=== PATIENT | male | born 1945 | race Caucasian/White ===

== ENCOUNTER 2024-05-21 09:14 | Emergency (ER) | payer MEDICARE ==
[~2024-05-21] VITALS: Ht 165.1 cm; Wt 93.0 kg
--- NOTE | 2024-05-21 10:33 | ERN ---
ED Note History of Present Illness Stated Complaint: LT HAND NUMBNESS Chief Complaint: Hand Problem/Injury Time Seen by MD: 09:34 Dictation: This is a case of 79-year-old cuco fenton with past medical history of obesity, high cholesterol who presented to the ER with the complaints of left hand numbness. He States that he recently had a 5th metacarpal fracture in February. A cast was applied at the time of injury and was removed 3 weeks ago. He notes that he has started experiencing numbness and tingling sensations in the 1st 4 fingers and pain in the center of the left arm. He does not have any primary care physician or orthopedician here. He denies fever, chills, shortness of breath, chest pain, palpitations, nausea, vomiting, neck pain, abdominal pain, paresthesias/tingling/numbing sensations in the left arm. Past Medical History Past Medical History: High Cholesterol Surgical History: Other Review of System Dictation ROS Constitutional: No appetite loss, No fevers, chills , No night sweats, No weakness, fatigue Eye: No vision change, No redness, pain or discharge ENT: No hearing loss, ear pain or discharge, No nose bleeds, No sore throat, Neck: No swelling. pain or stiffness Respiratory: No cough, shortness of breath, wheezing Cardiovascular: No chest pain,, palpitations, dyspnea, No edema Gastrointestinal: No abdominal pain, No nausea, vomiting, No diarrhea, constipation Genitourinary: No painful urination, No blood in urine, No urinary incontinence, No frequency or urgency Musculoskeletal: No joint pain, muscle pain, swelling or stiffness Neurological: Numbness and tingling sensations and stiffness noted in in the 1st 4 fingers of left hand, pain in middle of the left palm, No weakness, tremors or seizures Psychiatric: : No depression, No anxiety, No sleep disturbance, No Memory ti nges Lymphatic: No easy bruising, No bleeding tendencies , No swollen lymph nodes A 13-point Review of Systems was assessed, all of which are negative except for HPI or as indicated above. Initial Vital Sign VS Vital Signs Date Time Temp Pulse Resp B/P (MAP) Pulse Ox O2 Delivery O2 Flow Rate FiO2 05/21/24 09:15 98.1 88 20 /147 99 Room Air 05/21/24 09:15 0 21 Physical Exam Dictation General: Alert & Oriented, No acute distress. EENT: No conjunctival redness or discharge noted Tympanic membranes are clear, Normal hearing, Oral mucosa is moist, No pharyngeal erythema, No nasal discharge, No oral lesions. Neck: Non-tender, No jugular vein distention, No lymphadenopathy, No thyromegaly, Supple. Respiratory: Lungs are clear to auscultation, Respirations are non-labored, Breath sounds are equal, No chest wall tenderness, _. Cardiovascular: Normal rate, Normal rhythm, No murmur, Good pulses equal in all extremities, Normal peripheral perfusion, No edema. Gastrointestinal: Soft, Non-tender, Non-distended, Normal bowel sounds, No organomegaly, _. Musculoskeletal: Restricted motion in 1 to 4th finger of the left palm, No tenderness, No swelling, No deformity, Normal gait. Integumentary: Warm, Dry, [place], Intact, No pallor, No rash. Neurologic: Alert, Oriented x4, Normal sensory, No focal defects Psychiatric: Cooperative, Appropriate mood & affect, Normal judgement, Non- suicidal. Results (Laboratory/Radiology) X-RAY Comment: PROCEDURE: HAND 3V LT - HAND 3+VWS LT HAND 3+VWS LT REASON: LEFT HAND PAIN, RECENT FRACTURE S/P CAST TECHNIQUE: 3 views were obtained. FINDINGS: There is a spiral fracture midshaft of the fifth metatarsal. Margins are sclerotic consistent with partial healing or with fracture nonunion. There are no additional fractures. Joint spaces appear preserved. Soft tissues are unremarkable. IMPRESSION: 1. Fracture of the midshaft of the fifth metacarpal, this is either chronic with nonunion or partially healed 2. Otherwise unremarkable exam. ED Course ED Course Orders Procedure Category Date Status Time Hand 3+Vws Lt RAD 05/21/24 Resulted 09:49 Vital Signs Date Time Temp Pulse Resp B/P (MAP) Pulse Ox O2 Delivery O2 Flow Rate FiO2 05/21/24 11:20 98.2 85 16 140/65 98 Room Air* 0 21 05/21/24 09:15 98.1 88 20 147/67 99 Room Air* 0 21 05/21/24 09:15 98.1 88 20 /147 99 Room Air Medical Decision Making MDM MDM Potential differential diagnoses include: OLD FRACTURE OF SHAFT OF 1ST METACARPAL BONE S/P PARTIAL HEALING Assessment: Will order left hand x-ray I will re-evaluate the patient after treatment and diagnostic exams have returned to determine whether they require further testing, can be safely discharged home, or need admission for further treatment and evaluation. Given the social determinants of health affecting care, including literacy, access to medical care, prescription drug management, and [id number] drugs, I will ensure that treatment plans are tailored accordingly. Revaluation : Patient is alert and oriented. X-ray of left hand resulted in Fracture of the midshaft of the fifth metacarpal, this is either chronic with nonunion or partially healed Disposition: Will discharge patient at this time instructions to follow up with PCP for further evaluation and treatment. ADVISED TO USE A WRIST SPLINT ADVISED TO FOLLOW UP WITH A ORTHOPEDICIAN WITHIN 1 WEEK TAKE [id number] PAIN MEDICATIONS LIKE ACETAMINOPHEN AND IBUPROFEN P.R.N. FOLLOW A DIET RICH IN CALCIUM, VITAMIN-D AND PROTEIN MONITOR FOR SYMPTOMS LIKE FEVER, CHILLS, REDNESS, SWELLING, WARMTH , PALE, BLUE OR COLD FINGERS, AND SEEK IMMEDIATE MEDICAL ATTENTION IN SUCH SCENARIO PATIENT WAS GIVEN INFORMATION ABOUT PCPS AND ORTHOPEDICS AVAILABLE IN THE SURROUNDING AREA. DX & DISP Disposition: Discharge Departure Impression: Primary Impression: Fracture of fifth metacarpal bone of left hand Ruled Out: Closed metaphyseal fracture of fifth metatarsal bone Critical Time: 30 minutes Condition: Stable Referrals: NONE (PCP) ATTESTATION BY PHYSICIAN I have seen and examined the patient. I reviewed the documentation, medical decision making, and treatment plan as noted by the resident above. I agree with the findings and plan of care. ANTONIO CONDE PRIYANKA MD May 21, 2024 10:33 ANTONIO CONDE DO May 22, 2024 07:39
[2024-05-21 11:20] VITALS: BP 140/65; PULSE 85; RESP 16; TEMP 98.3; O2SAT 98
--- NOTE | 2024-05-21 11:26 | NUR ---
PT DC [id number] HOWEVER REG NOT COMPLETE DELAY IN DEPART
--- NOTE | 2024-05-21 11:58 | NUR ---
DEPART STILL NOT POSSIBLE DUE TO REGISTRATION
== END 2024-05-21 12:03 | disposition home or self-care (01) ==
LOC: EDH 09:14
DX: S62.327A Displaced fracture of shaft of fifth metacarpal bone, left hand, initial encounter for closed fracture (principal); E78.00 Pure hypercholesterolemia, unspecified; Z98.890 Other specified postprocedural states; X58.XXXA Exposure to other specified factors, initial encounter; Y93.89 Activity, other specified; Y92.89 Other specified places as the place of occurrence of the external cause; Y99.8 Other external cause status
CPT/HCPCS: 73130; 99283